=== PATIENT | male | born 2000 | race American Indian/Alaskan Native ===

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

== ENCOUNTER 2018-06-18 23:25 | Emergency (ER) | payer MEDICAID ==
--- NOTE | 2018-06-19 00:58 | Emergency Department Report ---
[facility] Chief Complaint: Eye Problems Stated Complaint: BILATERAL EYE IRRITATION Time Seen by Provider: 06/19/18 00:46 Duration: 1 week Side: Bilateral Severity: mild Symptoms: Yes Eye Itching, Yes Eye Redness, Yes Mucous Drainage, Yes H/O Allergic Rhinitis, No Eye Pain, No Purulent Drainage, No Blurred Vision, No Preceding URI, No Contact Lens Use, No Trauma, No Fever, No Headache Other History: This is a 18-year-old after [place] male who presents with redness and itching to bilateral eyes for one week. Patient reports a history of asthma and allergies. Patient states symptoms increased yesterday with clear discharge. He denies taking any medication prior to arrival. Patient reports some sensitivity to light. He denies fever, cough, rhinorrhea, pain, grinding sensation, or visual changes. ED Review of Systems ROS: Stated complaint: BILATERAL EYE IRRITATION Other details as noted in HPI Constitutional: denies: chills, fever Eyes: eye discharge (bilateral), other (bilateral eye redness). denies: eye pain, vision change Respiratory: denies: cough, shortness of breath, wheezing Cardiovascular: denies: chest pain, palpitations Gastrointestinal: denies: abdominal pain, nausea, diarrhea Skin: denies: rash, lesions Neurological: denies: headache, weakness, paresthesias Psychiatric: denies: anxiety, depression ED Past Medical Hx - Past Medical History Hx Psychiatric Treatment: Yes (bipolar (takes risperidal)) Hx Asthma: Yes - Surgical History Past Surgical History?: No - Social History Smoking Status: Never Smoker Substance Use Type: None - Medications Home Medications: Home Medications Medication Instructions Recorded Confirmed Last Taken Type Ibuprofen [Motrin] 600 mg PO Q8H PRN #12 tablet 08/24/17 Unknown Rx Ibuprofen [Motrin] 600 mg PO Q8H PRN #20 tablet 09/30/17 Unknown Rx Azithromycin(Nf)1% Ophth Soln 1 drops OU QDAY 5 Days #1 bottle 06/19/18 Unknown Rx [Azasite 1% Ophth Soln] [facility] Exam - Exam General: Vital signs noted. No distress. Alert and acting appropriately. Eye Exam: Both Injection, Both EOMI, Both Mucous Discharge, Neither Chemosis, Neither Abnormal Pupil, Neither Eye Foreign Body, Neither Lid Foreign Body, Neither Purulent Discharge, Neither Fluorescein Uptake, Neither Fluorescein Uptake (slit lamp), Neither Cell/Flare (slit lamp), Neither Corneal Edema, Neither Photophobia HEENT: Yes Nasal Congestion, No Pharyngeal Erythema Remainder of HEENT: Normal Lungs: Yes Clear Lung Sounds, Yes Good Air Exchange, No Wheezes, No Stridor, No Cough, No Nasal Flaring, No Retractions, No Use of Accessory Muscles ED Course Vital Signs 06/18/18 23:52 Temperature 98.1 F Pulse Rate 87 Respiratory 18 Rate Blood Pressure 129/79 ED Medical Decision Making - Medical Decision Making This is a 18-year-old male that presents with bilateral pink eyes with mucous discharge for 1 week. Patient is stable and was examined by me. Vitals normal. Visual acuity bilaterally 20/25. Physical assessment susceptible of conjunctivitis bilateral. Start erythromycin. Discussed plan with mother and she agreed with plan. Discharged home in stable condition. Follow up with PCP in 24- 72 hours. Critical care attestation.: If time is entered above; I have spent that time in minutes in the direct care of this critically ill patient, excluding procedure time. ED Disposition Clinical Impression: Conjunctivitis Qualifiers: Conjunctivitis type: acute Acute conjunctivitis type: bacterial Laterality: bilateral Qualified Code(s): H10.33 - Unspecified acute conjunctivitis, bilateral Disposition: TO HOME OR SELFCARE Is pt being admited?: No Does the pt Need Aspirin: No Condition: Stable Instructions: Conjunctivitis (ED) Additional Instructions: Pinkeye is very contagious so please wash hands frequently. Don't share any towels or bedding to prevent spread of infection. Follow up with primary care provider in 24-72 hours. Use cool compress to each eye to decrease swelling. Avoid rubbing or touching eyes, because rubbing eyes can cause worsening symptoms. Take medication as prescribed. Return to ER if swelling don't improve or difficulty breathing after 2 days of medication. Prescriptions: Azithromycin(Nf)1% Ophth Soln [Azasite 1% Ophth Soln] 1 drops OU QDAY 5 Days #1 bottle Referrals: ZOEY NOLAND MD [Primary Care Provider] - 3-5 Days NELLIE ELKINS MD [Staff Physician] - 3-5 Days [facility] [Outside] - 3-5 Days Time of Disposition: :
[2018-06-19 01:10] VITALS: BP 125/70
== END 2018-06-19 01:09 | disposition home or self-care (01) ==
LOC: ED 23:25
DX: H10.9 Unspecified conjunctivitis (principal); F31.9 Bipolar disorder, unspecified; J45.909 Unspecified asthma, uncomplicated

== ENCOUNTER 2018-06-21 21:31 | Emergency (ER) | payer MEDICAID ==
[2018-06-21] MEDS ORDERED: ULTRAM PO ONE (21:45)
[2018-06-21] MEDS ORDERED: IBUPROFEN PO ONE (21:45)
--- NOTE | 2018-06-21 21:52 | Emergency Department Report ---
ED Male HPI - General Chief complaint: Urogenital-Male Stated complaint: KIDNEY PAIN Time Seen by Provider: 06/21/18 21:37 Source: patient Mode of arrival: Ambulatory Limitations: No Limitations - History of Present Illness Initial comments: Patient is a 18-year-old male who signed and stated that he was having kidney pain however on further questioning patient is having pain in his testicles. Patient states this occurred approximately 20 minutes ago. Patient's states he was walking at the time that this started. Patient is gi rlfriend are in the room laughing hysterically and patient is a poor historian giving very vague details. Patient states that he was not kicked or punched in the groin is been no direct trauma. He did deny any dysuria or penile discharge. - Related Data Previous Rx's Medication Instructions Recorded Last Taken Type Ibuprofen [Motrin] 600 mg PO Q8H PRN #12 tablet 08/24/17 Unknown Rx Ibuprofen [Motrin] 600 mg PO Q8H PRN #20 tablet 09/30/17 Unknown Rx Azithromycin(Nf)1% Ophth Soln 1 drops OU QDAY 5 Days #1 bottle 06/19/18 Unknown Rx [Azasite 1% Ophth Soln] Doxycycline [Vibramycin CAP] 100 mg PO Q12HR #14 capsule 06/21/18 Unknown Rx HYDROcodone/ACETAMINOPHEN 1 each PO Q6HR PRN #12 tablet 06/21/18 Unknown Rx [Hydrocodone-Acetamin 5-325 mg] Ibuprofen [Ibu] 800 mg PO Q8H PRN #20 tablet 06/21/18 Unknown Rx Allergies Allergy/AdvReac Type Severity Reaction Status Date / Time No Known Allergies Allergy Unverified 12/17/15 01:21 ED Review of Systems ROS: Stated complaint: KIDNEY PAIN Other details as noted in HPI Comment: All other systems reviewed and negative ED Past Medical Hx - Past Medical History Previous Medical History?: Yes Hx Psychiatric Treatment: Yes (bipolar (takes risperidal)) Hx Asthma: Yes - Surgical History Past Surgical History?: No - Social History Smoking Status: Never Smoker Substance Use Type: None - Medications Home Medications: Home Medications Medication Instructions Recorded Confirmed Last Taken Type Ibuprofen [Motrin] 600 mg PO Q8H PRN #12 tablet 08/24/17 Unknown Rx Ibuprofen [Motrin] 600 mg PO Q8H PRN #20 tablet 09/30/17 Unknown Rx Azithromycin(Nf)1% Ophth Soln 1 drops OU QDAY 5 Days #1 bottle 06/19/18 Unknown Rx [Azasite 1% Ophth Soln] Doxycycline [Vibramycin CAP] 100 mg PO Q12HR #14 capsule 06/21/18 Unknown Rx HYDROcodone/ACETAMINOPHEN 1 each PO Q6HR PRN #12 tablet 06/21/18 Unknown Rx [Hydrocodone-Acetamin 5-325 mg] Ibuprofen [Ibu] 800 mg PO Q8H PRN #20 tablet 06/21/18 Unknown Rx ED Physical Exam - General Limitations: No Limitations General appearance: alert, in no apparent distress - Head Head exam: Present: atraumatic, normocephalic - Eye Eye exam: Present: normal appearance - ENT ENT exam: Present: mucous membranes moist - Respiratory Respiratory exam: Absent: respiratory distress - GI/Abdominal GI/Abdominal exam: Present: soft, normal bowel sounds. Absent: distended, tend erness, guarding, rebound - exam: Present: normal inspection, testicular tenderness (right) ED Course Vital Signs 06/21/18 21:48 Respiratory 20 Rate ED Medical Decision Making - Lab Data Result diagrams: 06/21/18 22:51 06/21/18 22:51 Lab Results 06/21/18 06/21/18 Range/Units 22:21 22:51 WBC 7.2 (4.5-11.0) K/mm3 RBC 5.02 (3.65-5.03) M/mm3 Hgb 15.0 (11.8-15.2) gm/dl Hct 43.4 (35.5-45.6) % MCV 86 (84-94) fl MCH 30 (28-32) pg MCHC 35 H (32-34) % RDW 13.3 (13.2-15.2) % Plt Count 285 (140-440) K/mm3 Lymph % (Auto) 22.1 (13.4-35.0) % [place] % (Auto) 12.3 H (0.0-7.3) % Eos % (Auto) 11.2 H (0.0-4.3) % Baso % (Auto) 0.7 (0.0-1.8) % Lymph # 1.6 (1.2-5.4) K/mm3 [place] # 0.9 H (0.0-0.8) K/mm3 Eos # 0.8 H (0.0-0.4) K/mm3 Baso # 0.1 (0.0-0.1) K/mm3 Seg Neutrophils % 53.7 (40.0-70.0) % Seg Neutrophils # 3.9 (1.8-7.7) K/mm3 Urine Color Yellow (Yellow) Urine Turbidity Clear (Clear) Urine pH 7.0 (5.0-7.0) Ur Specific [place] 1.027 (1.003-1.030) Urine Protein <15 mg/dl (Negative) mg/dL Urine Glucose (UA) Neg (Negative) mg/dL Urine Ketones Neg (Negative) mg/dL Urine Blood Neg (Negative) Urine Nitrite Neg (Negative) Urine Bilirubin Neg (Negative) Urine Urobilinogen 4.0 (<2.0) mg/dL Ur Leukocyte Esterase Neg (Negative) Urine WBC (Auto) 1.0 (0.0-6.0) /HPF Urine RBC (Auto) 2.0 (0.0-6.0) /HPF Urine Mucus 1+ /HPF - Radiology Data [facility] [address] [place] [address] Ultrasound Report Signed Patient: HOSSEIN VILLARREAL MR#: [id number] 5 : 2000 Acct:[id number] Age/Sex: 18 / M ADM Date: 06/21/18 Loc: ED Attending Dr: Ordering Physician: KWAME WILSON MD Date of Service: 06/21/18 Procedure(s): US testicular doppler comp Accession Number(s): [id number] cc: KWAME WILSON MD PROCEDURE: US TESTICULAR DOPPLER COMP TECHNIQUE: Ultrasound of the scrotum HISTORY: right testicular pain COMPARISONS: None FINDINGS: Examination of the testicles demonstrates both to be normal in size and normal and homogeneous in echogenicity with normal blood flow bilaterally. No focal abnormality is noted in either testicle. The right testicle measures 3.8 x 2.1 x 4.0 cm and the left measures 3.3 x 2.7 x 3.2 cm. Both epididymides appear normal in size and echogenicity. There is normal blood flow to the left epididymis. However, there is hyperemic blood flow on the right. This finding is consistent with acute epididymitis. No focal abnormality is noted. No evidence for hydroceles or varicoceles are present bilaterally. IMPRESSION: Hyperemia involving the right epididymis consistent with acute epididymitis. Otherwise, normal testicular ultrasound This document is electronically signed by Remedios Witt MD., June 21 2018 11:02:14 PM ET Transcribed By: [facility] Dictated By: REMEDIOS WITT MD Electronically Authenticated By: REMEDIOS WITT MD Signed Date/Time: 06/21/182303 DD/ 49 TD/TT: 06/21/182251 - Medical Decision Making [place] observation about the epididymitis with the patient. Because of the patient's age patient likely with a sexual transmitted disease causing his epididymitis. Patient will be treated as such will be discharged home with doxycycline. Critical care attestation.: If time is entered above; I have spent that time in minutes in the direct care of this critically ill patient, excluding procedure time. ED Disposition Clinical Impression: Epididymitis Disposition: - TO HOME OR SELFCARE Is pt being admited?: No Does the pt Need Aspirin: No Condition: Stable Instructions: Epididymitis (ED) Referrals: VERONICA MARIA MD [Primary Care Provider] - 3-5 Days Forms: STI Treatment and Prevention Time of Disposition: 23:21
[2018-06-21 23:00] LABS: Bilirubin,Urine NEG (Negative); Blood,Urine NEG (Negative); Color,Urine Yellow (Yellow); Mucus,Urine 1+ /HPF; Protein,Urine <15 mg/dL mg/dL (Negative)
--- NOTE | 2018-06-21 23:04 | Ultrasound Report ---
PROCEDURE: US TESTICULAR DOPPLER COMP TECHNIQUE: Ultrasound of the scrotum HISTORY: right testicular pain COMPARISONS: None FINDINGS: Examination of the testicles demonstrates both to be normal in size and normal and homogeneous in ech ogenicity with normal blood flow bilaterally. No focal abnormality is noted in either testicle. The r ight testicle measures 3.8 x 2.1 x 4.0 cm and the left measures 3.3 x 2.7 x 3.2 cm. Both epididymides appear normal in size and echogenicity. There is normal blood flow to the left epid idymis. However, there is hyperemic blood flow on the right. This finding is consistent with acute ep ididymitis. No focal abnormality is noted. No evidence for hydroceles or varicoceles are present bila terally. IMPRESSION: Hyperemia involving the right epididymis consistent with acute epididymitis. Otherwise, normal testic ular ultrasound This document is electronically signed by Remedios Witt MD., June 21 2018 11:02:14 PM ET
[2018-06-21 23:09] LABS: Basophils # (Auto) 0.1 K/mm3 (0.0-0.1); Basophils % (Auto) 0.7 % (0.0-1.8); Eosinophils # (Auto) 0.8 K/mm3 (0.0-0.4); Eosinophils % (Auto) 11.2 % (0.0-4.3); Hematocrit 43.4 % (35.5-45.6); Lymphocytes # (Auto) 1.6 K/mm3 (1.2-5.4); Lymphocytes % (Auto) 22.1 % (13.4-35.0); Mean Corpuscular HGB Conc 35 % (32-34); Mean Corpuscular Volume 86 fl (84-94); Monocytes # (Auto) 0.9 K/mm3 (0.0-0.8); Monocytes % (Auto) 12.3 % (0.0-7.3); Platelet Count 285 K/mm3 (140-440); Red Blood Count 5.02 M/mm3 (3.65-5.03); Red Cell Distribution Width 13.3 % (13.2-15.2)
[2018-06-21] MEDS ORDERED: XYLOCAINE 1% MPF 5 mL INFILTRATI ONE (23:15)
[2018-06-21] MEDS ORDERED: ROCEPHIN IM ONE (23:15)
[2018-06-21] MEDS ORDERED: ZITHROMAX PO ONE (23:15)
[2018-06-21 23:19] LABS: BUN/Creatinine Ratio 12; Blood Urea Nitrogen 11 mg/dL (9-20); Calcium 9.4 mg/dL (8.4-10.2); Hemolysis Index 13
== END 2018-06-21 23:47 | disposition home or self-care (01) ==
LOC: ED 21:31
DX: N45.1 Epididymitis (principal); F31.9 Bipolar disorder, unspecified; J45.909 Unspecified asthma, uncomplicated
CPT/HCPCS: 36415; 80048; 81001; 85025; 87591; 93975; 96372; 99284; J0696

== ENCOUNTER 2018-06-23 21:36 | Emergency (ER) | payer MEDICAID ==
--- NOTE | 2018-06-23 21:53 | Emergency Department Report ---
Blank Doc - Documentation Documentation: This is a 18-year-old male that presents with wheezing. PHX is asthma. This initial assessment/diagnostic orders/clinical plan/treatment(s) is/are subject to change based on patient's health status, clinical progression and re- assessment by fellow clinical providers in the ED. Further treatment and workup at subsequent clinical providers discretion. Patient/guardians urged not to elope from the ED as their condition may be serious if not clinically assessed and managed. Initial orders include: 1- Patient sent to [facility] for further evaluation and treatment 2- breathing treatment and steroids 3- CXR
[2018-06-23] MEDS ORDERED: ATROVENT IH ONE (21:54)
[2018-06-23] MEDS ORDERED: DECADRON IM ONE (21:54)
[2018-06-23] MEDS ORDERED: PROVENTIL IH ONE (21:54)
[2018-06-23 21:55] VITALS: BP 122/77
--- NOTE | 2018-06-23 23:24 | XRay Report ---
PROCEDURE: XR CHEST ROUTINE 2V TECHNIQUE: PA and lateral chest radiographs were obtained. HISTORY: wheezing COMPARISONS: None. FINDINGS: Heart: Normal. Mediastinum/Vessels: Normal. Lungs/Pleural space: Mild increased markings in the hilar regions, bronchitis is suspected. Bony thorax: No acute osseous abnormality. IMPRESSION: Mild increased markings in the hilar regions most consistent with bronchitis. This document is electronically signed by Kyara Balbuena DO., June 23 2018 11:21:56 PM ET
--- NOTE | 2018-06-24 03:01 | Emergency Department Report ---
- General Chief Complaint: Adult Asthma Stated Complaint: ASTHMA Time Seen by Provider: 06/23/18 21:52 Source: patient Mode of arrival: Ambulatory Limitations: No Limitations - History of Present Illness Initial Comments: Pt is a 18 yo male who presents to the ED with c/o a dry cough that began today. He has associated SOB, he states it has now resolved. He denies any fever or wh eezing. The patient claims to have a "hx of asthma." when asked what he takes for his asthma he states "nothing." when asked who diagnosed him with asthma he replies "my dad." The patient also states "he needs to stay here because his girlfriend is admitted upstairs." He states he "needs to speak with the geriatric social worker and needs a ride." - Related Data Previous Rx's Medication Instructions Recorded Last Taken Type Ibuprofen [Motrin 600 MG tab] 600 mg PO Q8H PRN #12 tablet 08/24/17 Unknown Rx Ibuprofen [Motrin 600 MG tab] 600 mg PO Q8H PRN #20 tablet 09/30/17 Unknown Rx Ibuprofen [Ibu] 800 mg PO Q8H PRN #20 tablet 06/21/18 Unknown Rx Azithromycin [Zithromax Z-SUZI] 250 mg PO DAILY 5 Days #6 tablet 06/24/18 Unknown Rx Benzonatate [Tessalon Perles] 100 mg PO Q8HR PRN #20 capsule 06/24/18 Unknown Rx Prednisone [predniSONE 10 mg 10 mg PO .TAPER 6 Days #1 tab.ds.pk 06/24/18 Unknown Rx (6-Day Pack, 21 Tabs)] Allergies Allergy/AdvReac Type Severity Reaction Status Date / Time No Known Allergies Allergy Unverified 12/17/15 01:21 ED Review of Systems ROS: Stated complaint: ASTHMA Other details as noted in HPI Comment: All other systems reviewed and negative ED Past Medical Hx - Past Medical History Previous Medical History?: Yes Hx Psychiatric Treatment: Yes (bipolar (takes risperidal)) Hx Asthma: Yes - Surgical History Past Surgical History?: No - Social History Smoking Status: Current Every Day Smoker Substance Use Type: None - Medications Home Medications: Home Medications Medication Instructions Recorded Confirmed Last Taken Type Ibuprofen [Motrin 600 MG tab] 600 mg PO Q8H PRN #12 tablet 08/24/17 Unknown Rx Ibuprofen [Motrin 600 MG tab] 600 mg PO Q8H PRN #20 tablet 09/30/17 Unknown Rx Ibuprofen [Ibu] 800 mg PO Q8H PRN #20 tablet 06/21/18 Unknown Rx Azithromycin [Zithromax Z-SUZI] 250 mg PO DAILY 5 Days #6 tablet 06/24/18 Unknown Rx Benzonatate [Tessalon Perles] 100 mg PO Q8HR PRN #20 capsule 06/24/18 Unknown Rx Prednisone [predniSONE 10 mg 10 mg PO .TAPER 6 Days #1 tab.ds.pk 06/24/18 Unknown Rx (6-Day Pack, 21 Tabs)] ED Physical Exam - General Limitations: No Limitations General appearance: alert, in no apparent distress - Head Head exam: Present: atraumatic, normocephalic - ENT ENT exam: Present: normal orophraynx, mucous membranes moist - Respiratory Respiratory exam: Present: normal lung sounds bilaterally. Absent: respiratory distress, wheezes, rales, rhonchi, stridor, chest wall tenderness, accessory muscle use, decreased breath sounds, prolonged expiratory - Cardiovascular Cardiovascular Exam: Present: regular rate, normal rhythm, normal heart sounds. Absent: systolic murmur, rubs, gallop - Neurological Exam Neurological exam: Present: alert, oriented X3 - Psychiatric Psychiatric exam: Present: normal affect, normal mood - Skin Skin exam: Present: warm, dry, intact ED Course Vital Signs 06/23/18 06/23/18 21:53 22:05 Temperature 97.5 F L Pulse Rate 79 Pulse Rate [ 80 Anterior Bilateral Throughout] Respiratory 18 Rate Respiratory 21 Rate [Anterior Bilateral Throughout] Blood Pressure 122/77 O2 Sat by Pulse 97 Oximetry ED Medical Decision Making - Radiology Data Radiology results: report reviewed CXR read as mild increased markings consistent with bronchitis - Medical Decision Making Pt is a 18 yo male who presents to the ED with c/o a dry cough that began today. He has associated SOB, he states it has now resolved. He denies any fever or wheezing. The patient claims to have a "hx of asthma." when asked what he takes for his asthma he states "nothing." when asked who diagnosed him with asthma he replies "my dad." The patient also states "he needs to stay here because his girlfriend is admitted upstairs." He states he "needs to speak with the geriatric social worker and needs a ride." Lung examination is completely normal. XR shows mild increased markings consistent with bronchitis. VSS. Duo neb ordered and given prior to my assessment, patient has no wheezing at all. Will tx patient for acute bronchitis given xr findings. will have patient follow up with PCP in the next 2-3 days. Advised pt to return to the ED for any new or worsening symptoms. Will discharge patient home at this time. Advised pt that the geriatric social worker comes in at 8 AM and he may wait in the waiting room until then. gave pt good rx card for prescriptions. - Differential Diagnosis URI, bronchitis, viral syndrome Critical care attestation.: If time is entered above; I have spent that time in minutes in the direct care of this critically ill patient, excluding procedure time. ED Disposition Clinical Impression: Acute bronchitis Qualifiers: Bronchitis organism: unspecified organism Qualified Code(s): J20.9 - Acute bronchitis, unspecified Disposition: DC-01 TO HOME OR SELFCARE Is pt being admited?: No Does the pt Need Aspirin: No Condition: Stable Instructions: Acute Bronchitis (ED) Additional Instructions: Follow up with your primary care doctor in the next 2-3 days. Take all medication as prescribed. Return to the emergency room for any new or worsening symptoms. May see geriatric social worker at 8 AM. Prescriptions: Prednisone [predniSONE 10 mg (6-Day Pack, 21 Tabs)] 10 mg PO .TAPER 6 Days #1 tab.ds.pk Benzonatate [Tessalon Perles] 100 mg PO Q8HR PRN #20 capsule PRN Reason: Cough Azithromycin [Zithromax Z-SUZI] 250 mg PO DAILY 5 Days #6 tablet Referrals: ZOEY NOLAND MD [Primary Care Provider] - 2-3 Days Time of Disposition: 03:05 Print Language: OMANI
== END 2018-06-24 03:15 | disposition home or self-care (01) ==
LOC: ED 21:36
DX: J20.9 Acute bronchitis, unspecified (principal); F31.9 Bipolar disorder, unspecified; F17.200 Nicotine dependence, unspecified, uncomplicated
CPT/HCPCS: 71046; 94644; 96372; 99283; J1100

== ENCOUNTER 2018-06-26 06:20 | Emergency (ER) | payer MEDICAID ==
[2018-06-26] MEDS ORDERED: PROVENTIL IH ONE (09:25)
[2018-06-26] MEDS ORDERED: DELTASONE PO ONE (09:25)
[2018-06-26] MEDS ORDERED: ATROVENT IH ONE (09:25)
--- NOTE | 2018-06-26 10:41 | Emergency Department Report ---
Minor Respiratory - HPI Chief Complaint: Dyspnea/Respdistress Stated Complaint: PAOLA Time Seen by Provider: 06/26/18 09:07 Duration: 1 Day Severity: moderate Minor Respiratory: Yes Able to Tolerate Fluids, Yes Cough (productive of white phlegm), Yes Shortness of Breath (hx of asthma but does not have an inhaler), No Rhinorrhea, No Sore Throat, No Ear Pain, No Sick Contacts, No Hemoptysis, No Ch est Pain, No Fever ED Review of Systems ROS: Stated complaint: PAOLA Other details as noted in HPI Comment: All other systems reviewed and negative ED Past Medical Hx - Past Medical History Hx Psychiatric Treatment: Yes (bipolar (takes risperidal)) Hx Asthma: Yes - Surgical History Past Surgical History?: No - Social History Smoking Status: Never Smoker Substance Use Type: None - Medications Home Medications: Home Medications Medication Instructions Recorded Confirmed Last Taken Type Ibuprofen [Motrin 600 MG tab] 600 mg PO Q8H PRN #12 tablet 08/24/17 Unknown Rx Ibuprofen [Motrin 600 MG tab] 600 mg PO Q8H PRN #20 tablet 09/30/17 Unknown Rx Ibuprofen [Ibu] 800 mg PO Q8H PRN #20 tablet 06/21/18 Unknown Rx Azithromycin [Zithromax Z-SUZI] 250 mg PO DAILY 5 Days #6 tablet 06/24/18 Unknown Rx Benzonatate [Tessalon Perles] 100 mg PO Q8HR PRN #20 capsule 06/24/18 Unknown Rx Prednisone [predniSONE 10 mg 10 mg PO .TAPER 6 Days #1 tab.ds.pk 06/24/18 Unknown Rx (6-Day Pack, 21 Tabs)] ALBUTEROL Inhaler(NF) [VENTOLIN 1 puff IH Q4HRT PRN #1 inha 06/26/18 Unknown Rx Inhaler(NF)] Benzonatate [Tessalon Perles] 100 mg PO Q8HR #10 capsule 06/26/18 Unknown Rx predniSONE [Deltasone] 20 mg PO QDAY #5 tab 06/26/18 Unknown Rx Minor Respiratory Exam - Exam General: Vital signs noted. No distress. Alert and acting appropriately. HEENT: Yes Moist Mucous Membranes, No Pharyngeal Erythema, No Pharyngeal Exudates, No Rhinorrhea, No Conjuctival Injection, No Frontal Tenderness, No Maxillary Tenderness Ear: Neither TM Bulge, Neither TM Erythema, Neither EAC Pain, Neither EAC Discharge Neck: Yes Supple, No Adenopathy Lungs: Yes Good Air Exchange, Yes Wheezes, No [place], No Stridor, No Cough, No Labored Respirations, No Retractions, No Use of Accessory Muscles, No Other Abnormal Lung Sounds Heart: Yes Regular, No Murmur Abdomen: Yes Normal Bowel Sounds, No Tenderness, No Peritoneal Signs Skin: No Rash, No Edema Neurologic: Alert and oriented, no deficits. Musculoskeletal: Unremarkable. ED Course Vital Signs 06/26/18 06:24 Temperature 97.4 F L Pulse Rate 73 Respiratory 18 Rate Blood Pressure 126/84 O2 Sat by Pulse 94 Oximetry ED Medical Decision Making - Medical Decision Making Patient was given hour-long no treatment and is feeling much improved. Patient's lungs are clear to auscultation after the neb treatment. Patient will be given refill of his inhaler as well as a short course of prednisone. Patient discharged home in stable condition. Critical care attestation.: If time is entered above; I have spent that time in minutes in the direct care of this critically ill patient, excluding procedure time. ED Disposition Clinical Impression: Asthma attack Qualifiers: Asthma severity: moderate Asthma persistence: unspecified Qualified Code(s): J45.901 - Unspecified asthma with (acute) exacerbation Disposition: DC-01 TO HOME OR SELFCARE Is pt being admited?: No Does the pt Need Aspirin: No Condition: Stable Instructions: Asthma (ED) [facility]errals: [facility] MD KARTHIKEYAN [Primary Care Provider] - 3-5 Days Time of Disposition: 10:41
[2018-06-26 10:54] VITALS: BP 133/76
== END 2018-06-26 10:54 | disposition home or self-care (01) ==
LOC: ED 06:20
DX: J45.901 Unspecified asthma with (acute) exacerbation (principal); F31.9 Bipolar disorder, unspecified
CPT/HCPCS: 94640; 99283; J7512

== ENCOUNTER 2018-06-28 06:17 | Emergency (ER) | payer MEDICAID ==
[2018-06-28 06:34] VITALS: BP 115/86
[2018-06-28] MEDS ORDERED: IBUPROFEN PO ONE (08:44)
--- NOTE | 2018-06-28 08:51 | Emergency Department Report ---
- General Chief Complaint: Upper Respiratory Infection Stated Complaint: NASAL CONGESTION Time Seen by Provider: 06/28/18 08:35 Source: patient Mode of arrival: Stretcher Limitations: No Limitations - History of Present Illness Initial Comments: 18-year-old male with a past medical history of asthma and bipolar disorder presents to the Hospital complaining of continued bilateral itching watery eyes, nasal congestion, postnasal drip, itchy throat for over a week. Patient does states he has a history of seasonal allergies and pollen counts are adequate and extreme level for the past week. Patient has had multiple ER visits here on June 19, , , and the for various complaints ranging from urogenital to respiratory. Patient states he lost his previous eye drop medication prescription and presents with his recent albuterol, Tessalon Perles, and prednisone prescriptions in hand. Patient states he cannot afford to fill the medication. He does not have a primary care doctor. Denies being homeless. - Related Data Previous Rx's Medication Instructions Recorded Last Taken Type Ibuprofen [Motrin 600 MG tab] 600 mg PO Q8H PRN #12 tablet 08/24/17 Unknown Rx Ibuprofen [Motrin 600 MG tab] 600 mg PO Q8H PRN #20 tablet 09/30/17 Unknown Rx Ibuprofen [Ibu] 800 mg PO Q8H PRN #20 tablet 06/21/18 Unknown Rx Azithromycin [Zithromax Z-SUZI] 250 mg PO DAILY 5 Days #6 tablet 06/24/18 Unknown Rx Benzonatate [Tessalon Perles] 100 mg PO Q8HR PRN #20 capsule 06/24/18 Unknown Rx Prednisone [predniSONE 10 mg 10 mg PO .TAPER 6 Days #1 tab.ds.pk 06/24/18 Unknown Rx (6-Day Pack, 21 Tabs)] ALBUTEROL Inhaler(NF) [VENTOLIN 1 puff IH Q4HRT PRN #1 inha 06/26/18 Unknown Rx Inhaler(NF)] Benzonatate [Tessalon Perles] 100 mg PO Q8HR #10 capsule 06/26/18 Unknown Rx predniSONE [Deltasone] 20 mg PO QDAY #5 tab 06/26/18 Unknown Rx Cetirizine HCl/Pseudoephedrine 1 each PO Q12HR #20 tab.er.12h 06/28/18 Unknown Rx [Zyrtec-D Tablet] Allergies Allergy/AdvReac Type Severity Reaction Status Date / Time No Known Allergies Allergy Unverified 12/17/15 01:21 ED Review of Systems ROS: Stated complaint: NASAL CONGESTION Other details as noted in HPI Comment: All other systems reviewed and negative ED Past Medical Hx - Past Medical History Hx Psychiatric Treatment: Yes (bipolar (takes risperidal)) Hx Asthma: Yes - Surgical History Past Surgical History?: No - Social History Smoking Status: Never Smoker Substance Use Type: None - Medications Home Medications: Home Medications Medication Instructions Recorded Confirmed Last Taken Type Ibuprofen [Motrin 600 MG tab] 600 mg PO Q8H PRN #12 tablet 08/24/17 Unknown Rx Ibuprofen [Motrin 600 MG tab] 600 mg PO Q8H PRN #20 tablet 09/30/17 Unknown Rx Ibuprofen [Ibu] 800 mg PO Q8H PRN #20 tablet 06/21/18 Unknown Rx Azithromycin [Zithromax Z-SUZI] 250 mg PO DAILY 5 Days #6 tablet 06/24/18 Unknown Rx Benzonatate [Tessalon Perles] 100 mg PO Q8HR PRN #20 capsule 06/24/18 Unknown Rx Prednisone [predniSONE 10 mg 10 mg PO .TAPER 6 Days #1 tab.ds.pk 06/24/18 Unknown Rx (6-Day Pack, 21 Tabs)] ALBUTEROL Inhaler(NF) [VENTOLIN 1 puff IH Q4HRT PRN #1 inha 06/26/18 Unknown Rx Inhaler(NF)] Benzonatate [Tessalon Perles] 100 mg PO Q8HR #10 capsule 06/26/18 Unknown Rx predniSONE [Deltasone] 20 mg PO QDAY #5 tab 06/26/18 Unknown Rx Cetirizine HCl/Pseudoephedrine 1 each PO Q12HR #20 tab.er.12h 06/28/18 Unknown Rx [Zyrtec-D Tablet] ED Physical Exam - General Limitations: No Limitations - Other Other exam information: General: No limitations, patient is alert in no acute distress Head exam: Atraumatic, normocephalic Eyes exam: Normal appearance, bilateral conjunctiva erythema with watery drainage. Pupils equal and reactive to light ENT: Moist mucous membrane, nasal congestion Neck exam: Normal inspection, full range of motion, no meningismus nontender Respiratory exam: Clear to auscultation bilateral, no wheezes, rales, crackles Cardiovascular: Normal rate and rhythm, normal heart sounds Abdomen: Soft, nondistended, and nontender, with normal bowel sounds, no rebound, or guarding Extremity: Full range of motion normal inspection no deformity Back: Normal Inspection, full range of motion, no tenderness Neurologic: Alert, oriented x3, cranial nerves intact, no motor or sensory deficit Psychiatric: normal affect, normal mood Skin: Warm, dry, intact ED Course Vital Signs 06/28/18 06/28/18 06:24 06:42 Temperature 97.4 F L 97.4 F L Pulse Rate 63 Respiratory 18 16 Rate Blood Pressure 115/86 Blood Pressure 115/86 [Left] O2 Sat by Pulse 100 Oximetry ED Medical Decision Making - Medical Decision Making Patient has seasonal allergies with high pollen counts. Zyrtec-D will be recommended. I explained to patient that we cannot give him the medications that he has to fill the prescriptions and use the discount card provided to help make his medications more affordable. - Differential Diagnosis allergies, conjunctivitis, asthma Critical Care Time: No Critical care attestation.: If time is entered above; I have spent that time in minutes in the direct care of this critically ill patient, excluding procedure time. ED Disposition Clinical Impression: Seasonal allergic conjunctivitis, Seasonal allergies Disposition: - TO HOME OR SELFCARE Is pt being admited?: No Does the pt Need Aspirin: No Condition: Stable Instructions: Allergic Rhinitis (ED), Conjunctivitis (ED) Additional Instructions: Take the medication as prescribed. Follow up with your doctor or the clinic/doctor provided. Return if symptoms worsen as indicated by your discharge instructions Prescriptions: Cetirizine HCl/Pseudoephedrine [Zyrtec-D Tablet] 1 each PO Q12HR #20 tab.er.12h Referrals: ZOEY NOLAND MD [Primary Care Provider] - 3-5 Days [facility] [Provider Group] - 3-5 Days Time of Disposition: 08:54
[2018-06-28] MEDS ORDERED: SUDAFED 12 HR PO ONE (09:30)
[2018-06-28] MEDS ORDERED: CLARITIN-D 12HR PO ONE (10:00)
== END 2018-06-28 09:07 | disposition home or self-care (01) ==
LOC: ED 06:17
DX: T78.49XA Other allergy, initial encounter (principal); H10.13 Acute atopic conjunctivitis, bilateral; J45.909 Unspecified asthma, uncomplicated; F31.9 Bipolar disorder, unspecified; Z79.899 Other long term (current) drug therapy; X58.XXXA Exposure to other specified factors, initial encounter
CPT/HCPCS: 99283

== ENCOUNTER 2018-07-12 19:13 | Emergency (ER) | payer MEDICAID ==
[2018-07-13 19:35] VITALS: BP 111/83
== END 2018-07-12 19:52 | disposition left against medical advice (07) ==
LOC: ED 19:13
DX: J45.909 Unspecified asthma, uncomplicated (principal); Z53.21 Procedure and treatment not carried out due to patient leaving prior to being seen by health care provider

== ENCOUNTER 2018-08-02 18:26 | Emergency (ER) | payer MEDICAID ==
[2018-08-02 18:42] VITALS: BP 125/72
== END 2018-08-03 03:30 | disposition left against medical advice (07) ==
LOC: ED 18:26
DX: N48.89 Other specified disorders of penis (principal); Z53.21 Procedure and treatment not carried out due to patient leaving prior to being seen by health care provider

== ENCOUNTER 2018-08-18 11:10 | Emergency (ER) | payer MEDICAID ==
--- NOTE | 2018-08-18 11:17 | Emergency Department Report ---
Blank Doc - Documentation Documentation: This is a 18-year-old male that presents with hematuria and some dysuria. This initial assessment/diagnostic orders/clinical plan/treatment(s) is/are subject to change based on patient's health status, clinical progression and re- assessment by fellow clinical providers in the ED. Further treatment and workup at subsequent clinical providers discretion. Patient/guardians urged not to elope from the ED as their condition may be serious if not clinically assessed and managed. Initial orders include: 1- Patient sent to [facility] for further evaluation and treatment 2- UA
[2018-08-18 11:19] VITALS: BP 116/79
[2018-08-18 12:36] LABS: Bacteria,Urine 1+ /HPF (Negative); Bilirubin,Urine NEG (Negative); Blood,Urine NEG (Negative); Color,Urine Straw (Yellow); Protein,Urine <15 mg/dL mg/dL (Negative); Urobilinogen,Urine < 2.0 mg/dL (<2.0)
== END 2018-08-18 12:08 | disposition left against medical advice (07) ==
LOC: ED 11:10
DX: R31.9 Hematuria, unspecified (principal); Z53.21 Procedure and treatment not carried out due to patient leaving prior to being seen by health care provider
CPT/HCPCS: 81001; 87086

== ENCOUNTER 2018-09-14 22:07 | Emergency (ER) | payer MEDICAID ==
[2018-09-14 22:17] VITALS: BP 117/77
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
--- NOTE | 2018-09-15 03:17 | XRay Report ---
PROCEDURE: XR ANKLE 3+V RT TECHNIQUE: Right ankle radiographs, AP, lateral, and oblique views. HISTORY: right ankle pain COMPARISONS: None . FINDINGS: Fracture (s) and/or Dislocation(s): None . Alignment: Normal . Joint space(s): Normal . Soft tissues: Normal . Bone mineralization: Normal . Foreign bodies: None . Calcaneal spurring: None . IMPRESSION: Within normal limits. . This document is electronically signed by Reji Barrera MD., September 15 2018 03:15:38 AM ET
== END 2018-09-15 03:35 | disposition home or self-care (01) ==
LOC: ED 22:07
DX: M79.661 Pain in right lower leg (principal); M79.662 Pain in left lower leg; J45.909 Unspecified asthma, uncomplicated; F17.200 Nicotine dependence, unspecified, uncomplicated; Z79.1 Long term (current) use of non-steroidal anti-inflammatories (NSAID); Z79.899 Other long term (current) drug therapy; V49.29XA Unspecified car occupant injured in collision with other motor vehicles in nontraffic accident, initial encounter; Y93.89 Activity, other specified; Y92.488 Other paved roadways as the place of occurrence of the external cause; Y99.8 Other external cause status
CPT/HCPCS: 99283

== ENCOUNTER 2018-09-28 00:51 | Emergency (ER) | payer MEDICAID ==
[2018-09-28 01:33] VITALS: BP 113/67
[2018-09-28 02:16] LABS: Basophils # (Auto) 0.1 K/mm3 (0.0-0.1); Basophils % (Auto) 0.8 % (0.0-1.8); Eosinophils # (Auto) 0.7 K/mm3 (0.0-0.4); Eosinophils % (Auto) 10.1 % (0.0-4.3); Hematocrit 44.1 % (35.5-45.6); Hemoglobin 15.1 gm/dl (11.8-15.2); Lymphocytes # (Auto) 2.3 K/mm3 (1.2-5.4); Lymphocytes % (Auto) 32.9 % (13.4-35.0); Mean Corpuscular HGB Conc 34 % (32-34); Mean Corpuscular Volume 87 fl (84-94); Monocytes % (Auto) 13.9 % (0.0-7.3); Platelet Count 228 K/mm3 (140-440); Red Blood Count 5.05 M/mm3 (3.65-5.03); Red Cell Distribution Width 13.8 % (13.2-15.2)
[2018-09-28 02:34] LABS: Alanine Aminotransferase 16 units/L (7-56); Albumin 4.4 g/dL (3.9-5); BUN/Creatinine Ratio 9; Blood Urea Nitrogen 9 mg/dL (9-20); Calcium 9.7 mg/dL (8.4-10.2); Hemolysis Index 8
[2018-09-28 03:03] LABS: Bilirubin,Urine NEG (Negative); Blood,Urine NEG (Negative); Color,Urine Yellow (Yellow); Mucus,Urine FEW /HPF; Protein,Urine <15 mg/dL mg/dL (Negative); WBC,Urine < 1.0 /HPF (0.0-6.0)
[2018-09-28] MEDS ORDERED: TYLENOL PO ONE (04:05)
[2018-09-28] MEDS ORDERED: FLEXERIL PO ONE (04:05)
--- NOTE | 2018-09-28 04:34 | Emergency Department Report ---
ED General Adult HPI - General Chief complaint: Abdominal Pain Stated complaint: PAOLA Time Seen by Provider: 09/28/18 03:50 Source: EMS Mode of arrival: Ambulatory Limitations: No Limitations - History of Present Illness Initial comments: Patient is a 18-year-old -[place] male with no past medical history presents to the ED with complaint of acute onset of persistent bilateral feet pain after walking for many miles on foot for the last 3 days. Patient states that he is homeless and has nowhere to leave but has been walking on and off different places and now complains of bilateral foot pain. Patient denies traumatic injury, chest pain, shortness of breath, dizziness, fever, chills, numbness or tingling or weakness of the extremities, back pain, abdominal pain or neck pain. MD Complaint: Bilateral foot pain -: Sudden, days(s) (3) Location: lower extremity (bilateral foot pain) Radiation: non-radiation Severity scale (0 -10): 6 Quality: aching, sharp, dull Consistency: constant Improves with: none Worsens with: movement Associated Symptoms: denies other symptoms. denies: confusion, chest pain, cough, diaphoresis, fever/chills, headaches, loss of appetite, malaise, nausea/vomiting, rash, shortness of breath, weakness Treatments Prior to Arrival: none - Related Data Previous Rx's Medication Instructions Recorded Last Taken Type Ibuprofen [Motrin 600 MG tab] 600 mg PO Q8H PRN #12 tablet 08/24/17 Unknown Rx Ibuprofen [Motrin 600 MG tab] 600 mg PO Q8H PRN #20 tablet 09/30/17 Unknown Rx Ibuprofen [Ibu] 800 mg PO Q8H PRN #20 tablet 06/21/18 Unknown Rx Azithromycin [Zithromax Z-SUZI] 250 mg PO DAILY 5 Days #6 tablet 06/24/18 Unknown Rx Benzonatate [Tessalon Perles] 100 mg PO Q8HR PRN #20 capsule 06/24/18 Unknown Rx Prednisone [predniSONE 10 mg 10 mg PO .TAPER 6 Days #1 tab.ds.pk 06/24/18 Un known Rx (6-Day Pack, 21 Tabs)] ALBUTEROL Inhaler(NF) [VENTOLIN 1 puff IH Q4HRT PRN #1 inha 06/26/18 Unknown Rx Inhaler(NF)] Benzonatate [Tessalon Perles] 100 mg PO Q8HR #10 capsule 06/26/18 Unknown Rx predniSONE [Deltasone] 20 mg PO QDAY #5 tab 06/26/18 Unknown Rx Cetirizine HCl/Pseudoephedrine 1 each PO Q12HR #20 tab.er.12h 06/28/18 Unknown Rx [Zyrtec-D Tablet] Allergies Allergy/AdvReac Type Severity Reaction Status Date / Time No Known Allergies Allergy Verified 08/18/18 11:12 ED Review of Systems ROS: Stated complaint: PAOLA Other details as noted in HPI Comment: All other systems reviewed and negative Constitutional: denies: chills, fever Eyes: denies: eye pain, eye discharge, vision change ENT: denies: ear pain, throat pain Respiratory: denies: cough, shortness of breath, wheezing Cardiovascular: denies: chest pain, palpitations Endocrine: no symptoms reported Gastrointestinal: denies: abdominal pain, nausea, diarrhea Genitourinary: denies: urgency, dysuria Musculoskeletal: arthralgia, other (bilateral foot pain). denies: back pain, joint swelling Skin: denies: rash, lesions Neurological: denies: headache, weakness, paresthesias Psychiatric: denies: anxiety, depression Hematological/Lymphatic: denies: easy bleeding, easy bruising ED Past Medical Hx - Past Medical History Previous Medical History?: Yes Hx Psychiatric Treatment: Yes (bipolar (takes risperidal)) Hx Asthma: Yes - Surgical History Past Surgical History?: No - Social History Smoking Status: Current Every Day Smoker Substance Use Type: Alcohol - Medications Home Medications: Home Medications Medication Instructions Recorded Confirmed Last Taken Type Ibuprofen [Motrin 600 MG tab] 600 mg PO Q8H PRN #12 tablet 08/24/17 Unknown Rx Ibuprofen [Motrin 600 MG tab] 600 mg PO Q8H PRN #20 tablet 09/30/17 Unknown Rx Ibuprofen [Ibu] 800 mg PO Q8H PRN #20 tablet 06/21/18 Unknown Rx Azithromycin [Zithromax Z-SUZI] 250 mg PO DAILY 5 Days #6 tablet 06/24/18 Unknown Rx Benzonatate [Tessalon Perles] 100 mg PO Q8HR PRN #20 capsule 06/24/18 Unknown Rx Prednisone [predniSONE 10 mg 10 mg PO .TAPER 6 Days #1 tab.ds.pk 06/24/18 Unknown Rx (6-Day Pack, 21 Tabs)] ALBUTEROL Inhaler(NF) [VENTOLIN 1 puff IH Q4HRT PRN #1 inha 06/26/18 Unknown Rx Inhaler(NF)] Benzonatate [Tessalon Perles] 100 mg PO Q8HR #10 capsule 06/26/18 Unknown Rx predniSONE [Deltasone] 20 mg PO QDAY #5 tab 06/26/18 Unknown Rx Cetirizine HCl/Pseudoephedrine 1 each PO Q12HR #20 tab.er.12h 06/28/18 Unknown Rx [Zyrtec-D Tablet] ED Physical Exam - General Limitations: No Limitations General appearance: alert, in no apparent distress - Head Head exam: Present: atraumatic, normocephalic, normal inspection - Eye Eye exam: Present: normal appearance, PERRL, EOMI Pupils: Present: normal accommodation - ENT ENT exam: Present: normal exam, normal orophraynx, mucous membranes moist, TM's normal bilaterally, normal external ear exam - Neck Neck exam: Present: normal inspection, full ROM - Respiratory Respiratory exam: Present: normal lung sounds bilaterally. Absent: respiratory distress, wheezes, rhonchi, stridor, chest wall tenderness, accessory muscle use, decreased breath sounds, prolonged expiratory - Cardiovascular Cardiovascular Exam: Present: regular rate, normal rhythm, normal heart sounds. Absent: systolic murmur, diastolic murmur, rubs, gallop - GI/Abdominal GI/Abdominal exam: Present: soft, normal bowel sounds. Absent: distended, guarding, rebound, rigid, hyperactive bowel sounds, hypoactive bowel sounds, organomegaly - Rectal Rectal exam: Present: deferred - Extremities Exam Extremities exam: Present: normal inspection, tenderness (Bilateral foot tenderness), normal capillary refill - Back Exam Back exam: Present: normal inspection. Absent: full ROM, tenderness, CVA tenderness (R), CVA tenderness (L), muscle spasm, paraspinal tenderness - Neurological Exam Neurological exam: Present: alert, oriented X3, CN II-XII intact, normal gait, reflexes normal - Psychiatric Psychiatric exam: Present: normal affect, normal mood - Skin Skin exam: Present: warm, dry, intact, normal color. Absent: rash ED Course Vital Signs 09/28/18 01:31 Temperature 97.8 F Pulse Rate 67 Respiratory 18 Rate Blood Pressure 113/67 O2 Sat by Pulse 98 Oximetry - Reevaluation(s) Reevaluation #1: 09/28/18 04:32 Patient is alert and oriented 3 and is not in any distress. Patient was treated for pain in the ED and discharged and advised to either wait for case management in the morning to assist with placement or return home, but to take [id number] Tylenol or ibuprofen for his foot pain. ED Medical Decision Making - Lab Data Result diagrams: 09/28/18 01:44 09/28/18 01:44 - Medical Decision Making Patient is alert and oriented 3 and is not in any distress. Patient was treated for pain in the ED and discharged and advised to either wait for case management in the morning to assist with placement or return home, but to take [id number] Tylenol or ibuprofen for his foot pain. - Differential Diagnosis Muscle strain of foot; muscle spasms Critical care attestation.: If time is entered above; I have spent that time in minutes in the direct care of this critically ill patient, excluding procedure time. ED Disposition Clinical Impression: Bilateral lower extremity pain Muscle strain of foot Qualifiers: Encounter type: initial encounter Laterality: unspecified laterality Qualified Code(s): S96.919A - Strain of unspecified muscle and tendon at ankle and foot level, unspecified foot, initial encounter Disposition: - TO HOME OR SELFCARE Is pt being admited?: No Does the pt Need Aspirin: No Condition: Stable Instructions: Arthralgia (ED), Muscle Strain (ED), Musculoskeletal Pain (ED) Additional Instructions: Take [id number] pain medications like Tylenol or ibuprofen as needed for pain and follow-up as advised with [facility] in 3 - 5 days for reevaluation Referrals: [facility] [Outside] - 3-5 Days Time of Disposition: 04:36 Print Language: [place]
== END 2018-09-28 05:10 | disposition home or self-care (01) ==
LOC: ED 00:51
DX: S96.912A Strain of unspecified muscle and tendon at ankle and foot level, left foot, initial encounter (principal); S96.911A Strain of unspecified muscle and tendon at ankle and foot level, right foot, initial encounter; F31.9 Bipolar disorder, unspecified; J45.909 Unspecified asthma, uncomplicated; F17.200 Nicotine dependence, unspecified, uncomplicated; Z79.899 Other long term (current) drug therapy; X58.XXXA Exposure to other specified factors, initial encounter; Y93.01 Activity, walking, marching and hiking; Y92.89 Other specified places as the place of occurrence of the external cause; Y99.8 Other external cause status
CPT/HCPCS: 36415; 80053; 81001; 85025; 99284

== ENCOUNTER 2018-10-04 01:19 | Emergency (ER) | payer MEDICAID ==
[2018-10-04] MEDS ORDERED: NUPERCAINAL PR PRN (02:47)
[2018-10-04] MEDS ORDERED: IBUPROFEN PO ONE (02:47)
--- NOTE | 2018-10-04 04:08 | Emergency Department Report ---
ED General Adult HPI - General Chief complaint: Extremity Injury, Lower Stated complaint: PENILE PAIN/FOOT PAIN Time Seen by Provider: 10/04/18 02:30 Source: patient, EMS Mode of arrival: Ambulatory Limitations: No Limitations - History of Present Illness Initial comments: Patient is a 18-year-old -[place] male with a history of chronic external hemorrhoids and essentially immediately called an acute onset persistent severe rectal pain due to external hemorrhoids last 2 days. Patient denies rectal bleeding, abdominal pain, nausea, vomiting, testicular pain, penile discharge, dizziness, fever, chills, diarrhea or hematochezia. MD Complaint: hemorrhoids pain -: Sudden, days(s) (2) Location: buttocks Radiation: non-radiation Severity scale (0 -10): 6 Quality: burning, aching, sharp Consistency: constant Improves with: none Worsens with: movement Associated Symptoms: denies other symptoms. denies: confusion, chest pain, cough, diaphoresis, fever/chills, headaches, malaise, nausea/vomiting, rash, seizure, shortness of breath, syncope, weakness Treatments Prior to Arrival: none - Related Data Previous Rx's Medication Instructions Recorded Last Taken Type Ibuprofen [Motrin 600 MG tab] 600 mg PO Q8H PRN #12 tablet 08/24/17 Unknown Rx Ibuprofen [Motrin 600 MG tab] 600 mg PO Q8H PRN #20 tablet 09/30/17 Unknown Rx Ibuprofen [Ibu] 800 mg PO Q8H PRN #20 tablet 06/21/18 Unknown Rx Azithromycin [Zithromax Z-SUZI] 250 mg PO DAILY 5 Days #6 tablet 06/24/18 Unknown Rx Benzonatate [Tessalon Perles] 100 mg PO Q8HR PRN #20 capsule 06/24/18 Unknown Rx Prednisone [predniSONE 10 mg 10 mg PO .TAPER 6 Days #1 tab.ds.pk 06/24/18 Unknown Rx (6-Day Pack, 21 Tabs)] ALBUTEROL Inhaler(NF) [VENTOLIN 1 puff IH Q4HRT PRN #1 inha 06/26/18 Unknown Rx Inhaler(NF)] Benzonatate [Tessalon Perles] 100 mg PO Q8HR #10 capsule 06/26/18 Unknown Rx predniSONE [Deltasone] 20 mg PO QDAY #5 tab 06/26/18 Unknown Rx Cetirizine HCl/Pseudoephedrine 1 each PO Q12HR #20 tab.er.12h 06/28/18 Unknown Rx [Zyrtec-D Tablet] Docusate Sodium [Move It Along] 100 mg PO QHS #30 tablet 10/04/18 Unknown Rx Hydrocortisone [Anusol-Hc 2.5% TOP 30 gm RC Q12H #1 cream..g. 10/04/18 Unknown Rx CREAM] Ketorolac [Toradol] 10 mg PO Q8H PRN #20 tablet 10/04/18 Unknown Rx Allergies Allergy/AdvReac Type Severity Reaction Status Date / Time No Known Allergies Allergy Verified 08/18/18 11:12 ED Review of Systems ROS: Stated complaint: PENILE PAIN/FOOT PAIN Other details as noted in HPI Constitutional: denies: chills, fever Eyes: denies: eye pain, eye discharge, vision change ENT: denies: ear pain, throat pain Respiratory: denies: cough, shortness of breath, wheezing Cardiovascular: denies: chest pain, palpitations Endocrine: no symptoms reported Gastrointestinal: other (rectal pain). denies: abdominal pain, nausea, diarrhea Genitourinary: denies: urgency, dysuria Musculoskeletal: denies: back pain, joint swelling, arthralgia Skin: denies: rash, lesions Neurological: denies: headache, weakness, paresthesias Psychiatric: denies: anxiety, depression Hematological/Lymphatic: denies: easy bleeding, easy bruising ED Past Medical Hx - Past Medical History Previous Medical History?: Yes Hx Psychiatric Treatment: Yes (bipolar (takes risperidal)) Hx Asthma: Yes - Surgical History Past Surgical History?: No - Social History Smoking Status: Never Smoker Substance Use Type: Alcohol - Medications Home Medications: Home Medications Medication Instructions Recorded Confirmed Last Taken Type Ibuprofen [Motrin 600 MG tab] 600 mg PO Q8H PRN #12 tablet 08/24/17 Unknown Rx Ibuprofen [Motrin 600 MG tab] 600 mg PO Q8H PRN #20 tablet 09/30/17 Unknown Rx Ibuprofen [Ibu] 800 mg PO Q8H PRN #20 tablet 06/21/18 Unknown Rx Azithromycin [Zithromax Z-SUZI] 250 mg PO DAILY 5 Days #6 tablet 06/24/18 Unknown Rx Benzonatate [Tessalon Perles] 100 mg PO Q8HR PRN #20 capsule 06/24/18 Unknown Rx Prednisone [predniSONE 10 mg 10 mg PO .TAPER 6 Days #1 tab.ds.pk 06/24/18 Unknown Rx (6-Day Pack, 21 Tabs)] ALBUTEROL Inhaler(NF) [VENTOLIN 1 puff IH Q4HRT PRN #1 inha 06/26/18 Unknown Rx Inhaler(NF)] Benzonatate [Tessalon Perles] 100 mg PO Q8HR #10 capsule 06/26/18 Unknown Rx predniSONE [Deltasone] 20 mg PO QDAY #5 tab 06/26/18 Unknown Rx Cetirizine HCl/Pseudoephedrine 1 each PO Q12HR #20 tab.er.12h 06/28/18 Unknown Rx [Zyrtec-D Tablet] Docusate Sodium [Move It Along] 100 mg PO QHS #30 tablet 10/04/18 Unknown Rx Hydrocortisone [Anusol-Hc 2.5% TOP 30 gm RC Q12H #1 cream..g. 10/04/18 Unknown Rx CREAM] Ketorolac [Toradol] 10 mg PO Q8H PRN #20 tablet 10/04/18 Unknown Rx ED Physical Exam - General Limitations: No Limitations General appearance: alert, in no apparent distress - Head Head exam: Present: atraumatic, normocephalic, normal inspection - Eye Eye exam: Present: normal appearance, PERRL, EOMI - ENT ENT exam: Present: normal exam, normal orophraynx, mucous membranes moist, TM's normal bilaterally, normal external ear exam - Neck Neck exam: Present: normal inspection, full ROM - Respiratory Respiratory exam: Present: normal lung sounds bilaterally. Absent: respiratory distress, wheezes, rales, rhonchi, chest wall tenderness, decreased breath sounds - Cardiovascular Cardiovascular Exam: Present: regular rate, normal rhythm, normal heart sounds. Absent: systolic murmur, diastolic murmur, rubs, gallop - GI/Abdominal GI/Abdominal exam: Present: soft, normal bowel sounds. Absent: distended, tenderness, hyperactive bowel sounds, hypoactive bowel sounds - Rectal Rectal exam: Present: hemorrhoids (external tender) - Extremities Exam Extremities exam: Present: normal inspection, normal capillary refill - Back Exam Back exam: Present: normal inspection, full ROM. Absent: tenderness, CVA tenderness (R), CVA tenderness (L), muscle spasm, paraspinal tenderness, vertebral tenderness - Neurological Exam Neurological exam: Present: alert, oriented X3, CN II-XII intact, normal gait, reflexes normal - Psychiatric Psychiatric exam: Present: normal affect, normal mood - Skin Skin exam: Present: warm, dry, intact, normal color. Absent: rash ED Course - Reevaluation(s) Reevaluation #1: 10/04/18 04:09 Patient is alert and oriented 3 and is not in distress but in pain. Patient was treated for pain in the ED and discharged home on occasions for pain. Patient is hemodynamically stable. ED Medical Decision Making - Medical Decision Making Patient is alert and oriented 3 and is not in distress but in pain. Patient was treated for pain in the ED and discharged home on occasions for pain. Patient is hemodynamically stable. - Differential Diagnosis external hemorrhoids; rectal bleeding; constipation Critical care attestation.: If time is entered above; I have spent that time in minutes in the direct care of this critically ill patient, excluding procedure time. ED Disposition Clinical Impression: External hemorrhoids, Anal or rectal pain Disposition: DC- TO HOME OR SELFCARE Is pt being admited?: No Does the pt Need Aspirin: No Condition: Stable Instructions: Hemorrhoids (ED) Additional Instructions: Apply the medications for pain as advised. Drink plenty of fluids and follow-up with your primary care physician in 5-7 days for reevaluation. Return to the ED immediately if symptoms get worse. Prescriptions: Docusate Sodium [Move It Along] 100 mg PO QHS #30 tablet Hydrocortisone [Anusol-Hc 2.5% TOP CREAM] 30 gm RC Q12H #1 cream..g. Ketorolac [Toradol] 10 mg PO Q8H PRN #20 tablet PRN Reason: Pain Referrals: ZOEY NOLAND MD [Primary Care Provider] - 3-5 Days Time of Disposition: 04:11 Print Language: MALAWIAN
[2018-10-04 04:36] VITALS: BP 108/69
== END 2018-10-04 04:34 | disposition home or self-care (01) ==
LOC: ED 01:19
DX: K62.5 Hemorrhage of anus and rectum (principal); F31.9 Bipolar disorder, unspecified; J45.909 Unspecified asthma, uncomplicated; Z79.1 Long term (current) use of non-steroidal anti-inflammatories (NSAID); Z79.899 Other long term (current) drug therapy
CPT/HCPCS: 99283

== ENCOUNTER 2018-10-05 00:25 | Emergency (ER) | payer MEDICAID ==
[2018-10-05 00:58] VITALS: BP 118/70
[2018-10-05] MEDS ORDERED: TYLENOL PO ONE (02:37)
--- NOTE | 2018-10-05 02:40 | Emergency Department Report ---
ED Extremity Problem HPI - General Chief complaint: Extremity Injury, Lower Stated complaint: PAIN TO RIGHT FOOT Time Seen by Provider: 10/05/18 02:38 Source: patient Mode of arrival: Ambulatory Limitations: No Limitations - History of Present Illness Initial comments: Patient is a 18-year-old -[place] male with no past medical history essentially negative, no acute onset of persistent severe right foot pain after walking for a long time. Patient says that he is on his feet most of the day walking around and that the right foot and got worse in the last 12 hours. Patient denies fever, chills, nausea, vomiting, traumatic injury, heavy lifting, headache, chest pain, shortness of breath or back pain. MD Complaint: extremity pain (right foot pain) -: Sudden, hour(s) (12), This morning Location: right, lower extremity (foot) History of Same: Yes -: Yes arthralgia Radiation: none Severity scale (0 -10): 5 Quality: aching, sharp, constant Consistency: constant Improves with: nothing Worsens with: weight bearing, walking, palpation Associated Symptoms: denies other symptoms. denies: chest pain, shortness of breath, fever, myalgias, arthralgias, rash - Related Data Previous Rx's Medication Instructions Recorded Last Taken Type Ibuprofen [Motrin 600 MG tab] 600 mg PO Q8H PRN #12 tablet 08/24/17 Unknown Rx Ibuprofen [Ibu] 800 mg PO Q8H PRN #20 tablet 06/21/18 Unknown Rx Azithromycin [Zithromax Z-SUZI] 250 mg PO DAILY 5 Days #6 tablet 06/24/18 Unknown Rx Benzonatate [Tessalon Perles] 100 mg PO Q8HR PRN #20 capsule 06/24/18 Unknown Rx Prednisone [predniSONE 10 mg 10 mg PO .TAPER 6 Days #1 tab.ds.pk 06/24/18 Unknown Rx (6-Day Pack, 21 Tabs)] ALBUTEROL Inhaler(NF) [VENTOLIN 1 puff IH Q4HRT PRN #1 inha 06/26/18 Unknown Rx Inhaler(NF)] Benzonatate [Tessalon Perles] 100 mg PO Q8HR #10 capsule 06/26/18 Unknown Rx predniSONE [Deltasone] 20 mg PO QDAY #5 tab 06/26/18 Unknown Rx Cetirizine HCl/Pseudoephedrine 1 each PO Q12HR #20 tab.er.12h 06/28/18 Unknown Rx [Zyrtec-D Tablet] Docusate Sodium [Move It Along] 100 mg PO QHS #30 tablet 10/04/18 Unknown Rx Hydrocortisone [Anusol-Hc 2.5% TOP 30 gm RC Q12H #1 cream..g. 10/04/18 Unknown Rx CREAM] Ketorolac [Toradol] 10 mg PO Q8H PRN #20 tablet 10/04/18 Unknown Rx Ibuprofen [Motrin 600 MG tab] 600 mg PO Q8H PRN #20 tablet 10/05/18 Unknown Rx Allergies Allergy/AdvReac Type Severity Reaction Status Date / Time No Known Allergies Allergy Verified 08/18/18 11:12 ED Review of Systems ROS: Stated complaint: PAIN TO RIGHT FOOT Other details as noted in HPI Constitutional: denies: chills, fever Eyes: denies: eye pain, eye discharge, vision change ENT: denies: ear pain, throat pain Respiratory: denies: cough, shortness of breath, wheezing Cardiovascular: denies: chest pain, palpitations Endocrine: no symptoms reported Gastrointestinal: denies: abdominal pain, nausea, diarrhea Genitourinary: denies: urgency, dysuria Musculoskeletal: arthralgia (right foot pain), myalgia. denies: back pain, joint swelling Skin: denies: rash, lesions Neurological: denies: headache, weakness, paresthesias Psychiatric: denies: anxiety, depression Hematological/Lymphatic: denies: easy bleeding, easy bruising ED Past Medical Hx - Past Medical History Previous Medical History?: Yes Hx Psychiatric Treatment: Yes (bipolar (takes risperidal)) Hx Asthma: Yes - Surgical History Past Surgical History?: No - Social History Smoking Status: Never Smoker Substance Use Type: None - Medications Home Medications: Home Medications Medication Instructions Recorded Confirmed Last Taken Type Ibuprofen [Motrin 600 MG tab] 600 mg PO Q8H PRN #12 tablet 08/24/17 Unknown Rx Ibuprofen [Ibu] 800 mg PO Q8H PRN #20 tablet 06/21/18 Unknown Rx Azithromycin [Zithromax Z-SUZI] 250 mg PO DAILY 5 Days #6 tablet 06/24/18 Unknown Rx Benzonatate [Tessalon Perles] 100 mg PO Q8HR PRN #20 capsule 06/24/18 Unknown Rx Prednisone [predniSONE 10 mg 10 mg PO .TAPER 6 Days #1 tab.ds.pk 06/24/18 Unknown Rx (6-Day Pack, 21 Tabs)] ALBUTEROL Inhaler(NF) [VENTOLIN 1 puff IH Q4HRT PRN #1 inha 06/26/18 Unknown Rx Inhaler(NF)] Benzonatate [Tessalon Perles] 100 mg PO Q8HR #10 capsule 06/26/18 Unknown Rx predniSONE [Deltasone] 20 mg PO QDAY #5 tab 06/26/18 Unknown Rx Cetirizine HCl/Pseudoephedrine 1 each PO Q12HR #20 tab.er.12h 06/28/18 Unknown Rx [Zyrtec-D Tablet] Docusate Sodium [Move It Along] 100 mg PO QHS #30 tablet 10/04/18 Unknown Rx Hydrocortisone [Anusol-Hc 2.5% TOP 30 gm RC Q12H #1 cream..g. 10/04/18 Unknown Rx CREAM] Ketorolac [Toradol] 10 mg PO Q8H PRN #20 tablet 10/04/18 Unknown Rx Ibuprofen [Motrin 600 MG tab] 600 mg PO Q8H PRN #20 tablet 10/05/18 Unknown Rx ED Physical Exam - General Limitations: No Limitations General appearance: alert, in no apparent distress - Head Head exam: Present: atraumatic, normocephalic, normal inspection - Eye Eye exam: Present: normal appearance, PERRL, EOMI. Absent: scleral icterus, conjunctival injection, nystagmus Pupils: Present: normal accommodation - ENT ENT exam: Present: normal exam, normal orophraynx, mucous membranes moist, TM's normal bilaterally, normal external ear exam - Neck Neck exam: Present: normal inspection, full ROM - Respiratory Respiratory exam: Present: normal lung sounds bilaterally. Absent: respiratory distress, wheezes, rales, accessory muscle use, decreased breath sounds, prolonged expiratory - Cardiovascular Cardiovascular Exam: Present: regular rate, normal rhythm, normal heart sounds. Absent: systolic murmur, diastolic murmur, rubs, gallop - GI/Abdominal GI/Abdominal exam: Present: soft, normal bowel sounds. Absent: distended, tenderness, guarding, rebound, hyperactive bowel sounds - Rectal Rectal exam: Present: deferred - Extremities Exam Extremities exam: Present: normal inspection, tenderness (mildly tender right foot), normal capillary refill. Absent: pedal edema, joint swelling, calf tenderness - Back Exam Back exam: Present: normal inspection, full ROM. Absent: tenderness, CVA tenderness (R), CVA tenderness (L), muscle spasm - Neurological Exam Neurological exam: Present: alert, oriented X3, CN II-XII intact, normal gait, reflexes normal - Psychiatric Psychiatric exam: Present: normal affect, normal mood - Skin Skin exam: Present: warm, dry, intact, normal color. Absent: rash ED Course Vital Signs 10/05/18 00:54 Temperature 97.4 F L Pulse Rate 61 Respiratory 18 Rate Blood Pressure 118/70 O2 Sat by Pulse 99 Oximetry - Reevaluation(s) Reevaluation #1: 10/05/18 02:45 Patient is alert and oriented 3 and is not in distress, sitting comfortably in the chair in no distress. Patient was treated for pain with Tylenol and discharged home with a prescription for ibuprofen, and advised follow-up with his primary care physician in 7-10 days for reevaluation. ED Medical Decision Making - Medical Decision Making Patient is alert and oriented 3 and is not in distress, sitting comfortably in the chair in no distress. Patient was treated for pain with Tylenol and discharged home with a prescription for ibuprofen, and advised follow-up with his primary care physician in 7-10 days for reevaluation. - Differential Diagnosis muscle strain of right foot Critical care attestation.: If time is entered above; I have spent that time in minutes in the direct care of this critically ill patient, excluding procedure time. ED Disposition Clinical Impression: Muscle strain of foot Qualifiers: Encounter type: subsequent encounter Laterality: right Qualified Code(s): S96.911D - Strain of unspecified muscle and tendon at ankle and foot level, right foot, subsequent encounter Disposition: DC-01 TO HOME OR SELFCARE Is pt being admited?: No Does the pt Need Aspirin: No Condition: Stable Instructions: Muscle Strain (ED), Musculoskeletal Pain (ED) Additional Instructions: Take medications with food, drink plenty of fluids and follow up with your Primary Care Physician as advised. Return to the ED immediately if symptoms get worse. Prescriptions: Ibuprofen [Motrin 600 MG tab] 600 mg PO Q8H PRN #20 tablet PRN Reason: Pain Referrals: ZOEY NOLAND MD [Primary Care Provider] - 3-5 Days Time of Disposition: 02:43 Print Language: GERMAN
== END 2018-10-05 03:40 | disposition home or self-care (01) ==
LOC: ED 00:25
DX: S96.911A Strain of unspecified muscle and tendon at ankle and foot level, right foot, initial encounter (principal); J45.909 Unspecified asthma, uncomplicated; F31.9 Bipolar disorder, unspecified; Z79.1 Long term (current) use of non-steroidal anti-inflammatories (NSAID); Z79.899 Other long term (current) drug therapy; X50.0XXA Overexertion from strenuous movement or load, initial encounter; Y93.01 Activity, walking, marching and hiking; Y92.89 Other specified places as the place of occurrence of the external cause; Y99.8 Other external cause status
CPT/HCPCS: 99282

== ENCOUNTER 2018-10-05 08:59 | Emergency (ER) | payer MEDICAID ==
[2018-10-05 09:04] VITALS: BP 122/78
--- NOTE | 2018-10-05 09:31 | Emergency Department Report ---
ED Extremity Problem HPI - General Chief complaint: Extremity Problem,Nontraumatic Stated complaint: BILATERAL FOOT PAIN Time Seen by Provider: 10/05/18 09:22 Source: patient Mode of arrival: Ambulatory Limitations: No Limitations - History of Present Illness Initial comments: 18-year-old male comes in for bilateral feet pain. Patient was seen last night same issue. Patient was prescribed Toradol and ibuprofen. Patient reports has not helped. Patient has no other complaints. MD Complaint: extremity pain Location: bilateral lower extremity, other (feet) History of Same: Yes - Related Data Previous Rx's Medication Instructions Recorded Last Taken Type Ibuprofen [Motrin 600 MG tab] 600 mg PO Q8H PRN #12 tablet 08/24/17 Unknown Rx Ibuprofen [Ibu] 800 mg PO Q8H PRN #20 tablet 06/21/18 Unknown Rx Azithromycin [Zithromax Z-SUZI] 250 mg PO DAILY 5 Days #6 tablet 06/24/18 Unknown Rx Benzonatate [Tessalon Perles] 100 mg PO Q8HR PRN #20 capsule 06/24/18 Unknown Rx Prednisone [predniSONE 10 mg 10 mg PO .TAPER 6 Days #1 tab.ds.pk 06/24/18 Unknown Rx (6-Day Pack, 21 Tabs)] ALBUTEROL Inhaler(NF) [VENTOLIN 1 puff IH Q4HRT PRN #1 inha 06/26/18 Unknown Rx Inhaler(NF)] Benzonatate [Tessalon Perles] 100 mg PO Q8HR #10 capsule 06/26/18 Unknown Rx predniSONE [Deltasone] 20 mg PO QDAY #5 tab 06/26/18 Unknown Rx Cetirizine HCl/Pseudoephedrine 1 each PO Q12HR #20 tab.er.12h 06/28/18 Unknown Rx [Zyrtec-D Tablet] Docusate Sodium [Move It Along] 100 mg PO QHS #30 tablet 10/04/18 Unknown Rx Hydrocortisone [Anusol-Hc 2.5% TOP 30 gm RC Q12H #1 cream..g. 10/04/18 Unknown Rx CREAM] Ketorolac [Toradol] 10 mg PO Q8H PRN #20 tablet 10/04/18 Unknown Rx Ibuprofen [Motrin 600 MG tab] 600 mg PO Q8H PRN #20 tablet 10/05/18 Unknown Rx Allergies Allergy/AdvReac Type Severity Reaction Status Date / Time No Known Allergies Allergy Verified 08/18/18 11:12 ED Review of Systems ROS: Stated complaint: BILATERAL FOOT PAIN Other details as noted in HPI ED Past Medical Hx - Past Medical History Previous Medical History?: Yes Hx Psychiatric Treatment: Yes (bipolar (takes risperidal)) Hx Asthma: Yes - Surgical History Past Surgical History?: No - Social History Smoking Status: Current Every Day Smoker Substance Use Type: None - Medications Home Medications: Home Medications Medication Instructions Recorded Confirmed Last Taken Type Ibuprofen [Motrin 600 MG tab] 600 mg PO Q8H PRN #12 tablet 08/24/17 Unknown Rx Ibuprofen [Ibu] 800 mg PO Q8H PRN #20 tablet 06/21/18 Unknown Rx Azithromycin [Zithromax Z-SUZI] 250 mg PO DAILY 5 Days #6 tablet 06/24/18 Unknown Rx Benzonatate [Tessalon Perles] 100 mg PO Q8HR PRN #20 capsule 06/24/18 Unknown Rx Prednisone [predniSONE 10 mg 10 mg PO .TAPER 6 Days #1 tab.ds.pk 06/24/18 Unknown Rx (6-Day Pack, 21 Tabs)] ALBUTEROL Inhaler(NF) [VENTOLIN 1 puff IH Q4HRT PRN #1 inha 06/26/18 Unknown Rx Inhaler(NF)] Benzonatate [Tessalon Perles] 100 mg PO Q8HR #10 capsule 06/26/18 Unknown Rx predniSONE [Deltasone] 20 mg PO QDAY #5 tab 06/26/18 Unknown Rx Cetirizine HCl/Pseudoephedrine 1 each PO Q12HR #20 tab.er.12h 06/28/18 Unknown Rx [Zyrtec-D Tablet] Docusate Sodium [Move It Along] 100 mg PO QHS #30 tablet 10/04/18 Unknown Rx Hydrocortisone [Anusol-Hc 2.5% TOP 30 gm RC Q12H #1 cream..g. 10/04/18 Unknown Rx CREAM] Ketorolac [Toradol] 10 mg PO Q8H PRN #20 tablet 10/04/18 Unknown Rx Ibuprofen [Motrin 600 MG tab] 600 mg PO Q8H PRN #20 tablet 10/05/18 Unknown Rx ED Physical Exam - General Limitations: No Limitations General appearance: alert, in no apparent distress - Head Head exam: Present: atraumatic, normocephalic - ENT ENT exam: Present: mucous membranes moist - Expanded Lower Extremity Exam Right Upper Leg exam: Present: normal inspection Knee exam: Present: normal inspection Lower Leg exam: Present: normal inspection Ankle exam: Present: normal inspection Foot/Toe exam: Present: abrasion (5th digit). Absent: tenderness, swelling Neuro vascular tendon exam: Present: no vascular compromise Left Upper Leg exam: Present: normal inspection Knee exam: Present: normal inspection Lower Leg exam: Present: normal inspection Ankle exam: Present: normal inspection Foot/Toe exam: Present: full ROM. Absent: tenderness, swelling, ecchymosis, deformity, crepidus Neuro vascular tendon exam: Present: no vascular compromise - Back Exam Back exam: Present: normal inspection - Neurological Exam Neurological exam: Present: alert, oriented X3 - Psychiatric Psychiatric exam: Present: normal affect, normal mood - Skin Skin exam: Present: warm, dry, intact, normal color. Absent: rash ED Course Vital Signs 10/05/18 09:01 Temperature 97.8 F Pulse Rate 55 L Respiratory 18 Rate Blood Pressure 122/78 O2 Sat by Pulse 99 Oximetry ED Medical Decision Making - Medical Decision Making 18-year-old male comes in for bilateral feet pain was seen less than 12 hours ago prescribed pain medication. Patient reports that he does not feel that the medication is going to help. Discussed the patient that he has an abrasion on his toe that is not infected and that ibuprofen is the best management for that. Patient was discharged home in stable condition. Critical care attestation.: If time is entered above; I have spent that time in minutes in the direct care of this critically ill patient, excluding procedure time. ED Disposition Clinical Impression: Toe abrasion, non-infected, Foot pain, bilateral Disposition: DC-01 TO HOME OR SELFCARE Is pt being admited?: No Does the pt Need Aspirin: No Condition: Stable Instructions: Abrasion (ED) Additional Instructions: Continue with pain medication that was prescribed to use yesterday. Referrals: ZOEY NOLAND MD [Primary Care Provider] - 3-5 Days
== END 2018-10-05 09:36 | disposition home or self-care (01) ==
LOC: ED 08:59
DX: S90.415A Abrasion, left lesser toe(s), initial encounter (principal); S90.414A Abrasion, right lesser toe(s), initial encounter; F31.9 Bipolar disorder, unspecified; J45.909 Unspecified asthma, uncomplicated; F17.200 Nicotine dependence, unspecified, uncomplicated; Z79.1 Long term (current) use of non-steroidal anti-inflammatories (NSAID); Z79.899 Other long term (current) drug therapy; X58.XXXA Exposure to other specified factors, initial encounter; Y93.89 Activity, other specified; Y92.89 Other specified places as the place of occurrence of the external cause; Y99.8 Other external cause status
CPT/HCPCS: 99282

== ENCOUNTER 2018-11-01 03:13 | Emergency (ER) | payer SELFPAY ==
[2018-11-01 03:21] VITALS: BP 119/65
== END 2018-11-01 03:45 | disposition left against medical advice (07) ==
LOC: ED 03:13
DX: R09.81 Nasal congestion (principal); Z53.21 Procedure and treatment not carried out due to patient leaving prior to being seen by health care provider